=== PATIENT | male | born 1945 | race Hispanic/Latino ===

== ENCOUNTER 2021-05-20 10:24 | Emergency (ER) | payer MEDICARE ==
[~2021-05-20] VITALS: Ht 172.7 cm; Wt 57.7 kg
[~2021-05-20 10:24] MED LIST: LIPITOR PO; LOSARTAN POTASS25 MG PO; PLAVIX75 MG PO; PROTONIX40 MG/ML PO; Z.0.ASPIRIN CHEW81 M
[2021-05-20] MEDS ORDERED: LISINOPRIL10 MG PO (12:41)
[2021-05-20] MEDS ORDERED: METOPROLOL SUCC25 MG PO (12:41)
[2021-05-20] MEDS ORDERED: PRAVASTATIN SOD20 MG (12:41)
[2021-05-20] MEDS ORDERED: PREDNISONE20 MG PO (13:50)
[2021-05-20] MEDS ORDERED: VENTOLIN HFA18 GM INH (13:50)
[2021-05-20] MEDS ORDERED: AZITHROMYCIN250 MG PO (13:50)
== END 2021-05-20 13:55 | disposition home or self-care (01) ==
LOC: FSED 12:32
DX: J06.9 Acute upper respiratory infection, unspecified (principal); Z88.2 Allergy status to sulfonamides; Z95.5 Presence of coronary angioplasty implant and graft
CPT/HCPCS: 83518; 87400; 99283